=== PATIENT | female | born 1965 | race Caucasian/White ===

== ENCOUNTER 2019-08-05 12:31 | Emergency (ER) | payer MEDICARE, OTHER ==
[~2019-08-05] VITALS: Ht 162.6 cm; Wt 50.0 kg
[~2019-08-05 12:31] MED LIST: ESOM20CA31 PO; HALO.5 PO; METO25 PO; PALI6 PO; [UNRECOGNIZED DRUG - REMARK] PO
[2019-08-05 14:40] LABS: BASOPHILS % (AUTO) 0.5 % (0.0-2.0); EOSINOPHILS % (AUTO) 0.5 % (1.0-6.0); HEMATOCRIT 39.4 % (36-46); HEMOGLOBIN 13.6 g/dL (12.0-16.0); LYMPHOCYTES # (AUTO) 1.5 K/uL (1.0-4.8); MEAN CORPUSCULAR HEMOGLOBIN 33.7 pg (26.0-34.0); MEAN CORPUSCULAR HGB CONC 34.5 G/dL (31.0-37.0); MEAN CORPUSCULAR VOLUME 98 fL (80-100); MONOCYTES # (AUTO) 0.5 K/uL (0.1-1.0); MONOCYTES % (AUTO) 10.3 % (2.0-9.0); NEUTROPHILS % (AUTO) 58.7 % (40.0-70.0); PLATELET COUNT (AUTO) 180 K/uL (150-450); RED BLOOD CELL COUNT(AUTO) 4.03 MIL/uL (4.00-5.20); RED CELL DISTRIBUTION WIDTH 14.3 % (11.5-14.5)
[2019-08-05 14:52] LABS: ANION GAP 6 mmol/L (8-16); CALCIUM, TOTAL 8.3 mg/dL (8.8-10.5); CARBON DIOXIDE 30 mmol/L (22-29); CHLORIDE 105 mmol/L (98-107); CREATININE 0.77 mg/dL (0.60-1.30); GLOMERULAR FILTR. RATE CALC > 60 mL/min (>60); GLUCOSE,RANDOM 73 mg/dL (70-110); POTASSIUM 3.6 mmol/L (3.5-5.1); SODIUM SERUM 141 mmol/L (136-145); UREA NITROGEN, BLOOD 7 mg/dL (7-18)
[2019-08-05 14:53] LABS: AMPHET/METH SCREEN,URINE NEGATIVE (NEGATIVE); APPEARANCE,URINE CLEAR (CLEAR); BARBITURATE SCREEN, URINE NEGATIVE (NEGATIVE); BENZODIAZEPINES SCREEN,URINE NEGATIVE (NEGATIVE); BILIRUBIN,URINE NEGATIVE (NEGATIVE); CANNABINOID SCREEN,URINE POSITIVE (NEGATIVE); COCAINE SCREEN,URINE NEGATIVE (NEGATIVE); GLUCOSE, URINE (UA) 100 mg/dL (NEGATIVE); KETONES,URINE NEGATIVE (NEGATIVE); LEUKOCYTE ESTERASE ,URINE NEGATIVE (NEGATIVE); METHADONE SCREEN, URINE NEGATIVE (NEGATIVE); NITRATE,URINE NEGATIVE (NEGATIVE); OCCULT BLOOD,URINE NEGATIVE (NEGATIVE); OPIATE SCREEN,URINE NEGATIVE (NEGATIVE); PH,URINE 6.5 (5.0-8.0); PROTEIN,URINE NEGATIVE (NEGATIVE)
[2019-08-05 14:54] LABS: PHENCYCLIDINE SCREEN,URINE NEGATIVE (NEGATIVE)
[2019-08-05 14:58] LABS: ALANINE AMINOTRANSFERASE 12 U/L (12-78); ALBUMIN 3.1 g/dL (3.4-5.0); ALKALINE PHOSPHATASE 71 U/L (46-116); ASPARTATE AMINOTRANSFERASE 10 U/L (15-37); BILIRUBIN,TOTAL 0.2 mg/dL (0.1-1.0); LIPASE 1018 U/L (73-393); TOTAL PROTEIN, SERUM 6.2 g/dL (6.4-8.2)
[2019-08-05 15:00] LABS: BACTERIA,URINE None Seen /HPF (None Seen); RBC,URINE None Seen /HPF (0-2); SQUAMOUS EPITHELIAL CELL,UR Few /LPF (None Seen); WBC,URINE None Seen /HPF (0-5)
[2019-08-05 16:40] VITALS: BP 136/71
== END 2019-08-05 17:19 | disposition home or self-care (01) ==
LOC: EMS 12:33
DX: R10.9 Unspecified abdominal pain (principal); R74.8 Abnormal levels of other serum enzymes; E11.9 Type 2 diabetes mellitus without complications; I10 Essential (primary) hypertension; F41.9 Anxiety disorder, unspecified; F32.9 Major depressive disorder, single episode, unspecified; F19.10 Other psychoactive substance abuse, uncomplicated; F20.9 Schizophrenia, unspecified; Z79.899 Other long term (current) drug therapy; Z88.8 Allergy status to other drugs, medicaments and biological substances

== ENCOUNTER 2020-11-06 12:51 | Emergency (ER) | payer MEDICARE, OTHER ==
[~2020-11-06] VITALS: Ht 165.1 cm; Wt 63.6 kg
[~2020-11-06 12:51] MED LIST changes: -PALI6 PO; +PALI6TAB15 PO; -[UNRECOGNIZED DRUG - REMARK] PO
[2020-11-06 13:53] LABS: APPEARANCE,URINE CLEAR (CLEAR); GLUCOSE, URINE (UA) 100 mg/dL (NEGATIVE); KETONES,URINE NEGATIVE (NEGATIVE); LEUKOCYTE ESTERASE ,URINE NEGATIVE (NEGATIVE); NITRATE,URINE NEGATIVE (NEGATIVE); OCCULT BLOOD,URINE NEGATIVE (NEGATIVE); PROTEIN,URINE NEGATIVE (NEGATIVE)
[2020-11-06 13:59] LABS: AMPHET/METH SCREEN,URINE NEGATIVE (NEGATIVE); BARBITURATE SCREEN, URINE NEGATIVE (NEGATIVE); BENZODIAZEPINES SCREEN,URINE NEGATIVE (NEGATIVE); CANNABINOID SCREEN,URINE POSITIVE (NEGATIVE); COCAINE SCREEN,URINE NEGATIVE (NEGATIVE); METHADONE SCREEN, URINE NEGATIVE (NEGATIVE); OPIATE SCREEN,URINE NEGATIVE (NEGATIVE); PHENCYCLIDINE SCREEN,URINE NEGATIVE (NEGATIVE)
[2020-11-06 14:04] LABS: BILIRUBIN,URINE PRELIM. POSITIVE (NEGATIVE)
[2020-11-06 14:05] LABS: BACTERIA,URINE None Seen /HPF (None Seen); RBC,URINE None Seen /HPF (0-2); WBC,URINE None Seen /HPF (0-5)
[2020-11-06 14:09] LABS: BASOPHILS % (AUTO) 0.5 % (0.0-2.0); EOSINOPHILS % (AUTO) 0.2 % (1.0-6.0); HEMATOCRIT 43.5 % (36-46); HEMOGLOBIN 14.8 g/dL (12.0-16.0); LYMPHOCYTES # (AUTO) 1.4 K/uL (1.0-4.8); LYMPHOCYTES % (AUTO) 24.2 % (22.0-44.0); MEAN CORPUSCULAR HEMOGLOBIN 34.5 pg (26.0-34.0); MEAN CORPUSCULAR HGB CONC 34.2 G/dL (31.0-37.0); MEAN CORPUSCULAR VOLUME 101 fL (80-100); MONOCYTES # (AUTO) 0.4 K/uL (0.1-1.0); MONOCYTES % (AUTO) 7.1 % (2.0-9.0); NEUTROPHILS # (AUTO) 3.8 K/uL (1.8-7.7); PLATELET COUNT (AUTO) 207 K/uL (150-450); RED CELL DISTRIBUTION WIDTH 13.2 % (11.5-14.5)
[2020-11-06 14:15] LABS: ANION GAP 6 mmol/L (8-16); CARBON DIOXIDE 31 mmol/L (22-29); CHLORIDE 105 mmol/L (98-107); CREATININE 1.03 mg/dL (0.60-1.30); GLOMERULAR FILTR. RATE CALC 55 mL/min (>60); GLUCOSE,RANDOM 109 mg/dL (70-110); POTASSIUM 3.6 mmol/L (3.5-5.1); SODIUM SERUM 142 mmol/L (136-145); UREA NITROGEN, BLOOD 7 mg/dL (7-18)
[2020-11-06 14:30] VITALS: BP 146/89
[2020-11-06 14:33] LABS: ALANINE AMINOTRANSFERASE 19 U/L (12-78); ALBUMIN 3.4 g/dL (3.4-5.0); ALKALINE PHOSPHATASE 76 U/L (46-116); ASPARTATE AMINOTRANSFERASE 11 U/L (15-37); BILIRUBIN,TOTAL 0.6 mg/dL (0.1-1.0); FREE T4 (FREE THYROXINE) 1.08 ng/dL (0.76-1.46); THYROID STIMULATING HORMONE 0.68 uIU/mL (0.36-3.74); TOTAL PROTEIN, SERUM 7.2 g/dL (6.4-8.2)
== END 2020-11-06 14:59 | disposition home or self-care (01) ==
LOC: EMS 12:59
DX: R10.84 Generalized abdominal pain (principal); R53.1 Weakness; F20.9 Schizophrenia, unspecified; F32.9 Major depressive disorder, single episode, unspecified; I10 Essential (primary) hypertension; F41.9 Anxiety disorder, unspecified; F17.210 Nicotine dependence, cigarettes, uncomplicated
CPT/HCPCS: 36415; 80053; 80307; 81001; 84439; 84443; 85025; 99283; G0480

== ENCOUNTER 2020-12-10 08:54 | Emergency (ER) | payer MEDICARE, OTHER ==
[~2020-12-10] VITALS: Ht 170.2 cm; Wt 63.6 kg
[2020-12-10 11:12] LABS: BASOPHILS % (AUTO) 0.5 % (0.0-2.0); EOSINOPHILS % (AUTO) 0.3 % (1.0-6.0); HEMATOCRIT 43.2 % (36-46); HEMOGLOBIN 14.6 g/dL (12.0-16.0); LYMPHOCYTES # (AUTO) 1.3 K/uL (1.0-4.8); LYMPHOCYTES % (AUTO) 23.3 % (22.0-44.0); MEAN CORPUSCULAR HEMOGLOBIN 33.8 pg (26.0-34.0); MEAN CORPUSCULAR HGB CONC 33.7 G/dL (31.0-37.0); MEAN CORPUSCULAR VOLUME 100 fL (80-100); MONOCYTES # (AUTO) 0.3 K/uL (0.1-1.0); MONOCYTES % (AUTO) 6.1 % (2.0-9.0); NEUTROPHILS % (AUTO) 69.8 % (40.0-70.0); PLATELET COUNT (AUTO) 195 K/uL (150-450); RED CELL DISTRIBUTION WIDTH 13.2 % (11.5-14.5)
[2020-12-10 11:27] LABS: ANION GAP 9 mmol/L (8-16); CALCIUM, TOTAL 9.1 mg/dL (8.8-10.5); CARBON DIOXIDE 26 mmol/L (22-29); CHLORIDE 106 mmol/L (98-107); CREATININE 0.73 mg/dL (0.60-1.30); GLOMERULAR FILTR. RATE CALC > 60 mL/min (>60); GLUCOSE,RANDOM 90 mg/dL (70-110); POTASSIUM 4.2 mmol/L (3.5-5.1); SODIUM SERUM 141 mmol/L (136-145); UREA NITROGEN, BLOOD 10 mg/dL (7-18)
[2020-12-10 11:32] LABS: ALANINE AMINOTRANSFERASE 15 U/L (12-78); ALBUMIN 4.2 g/dL (3.4-5.0); ALKALINE PHOSPHATASE 75 U/L (46-116); ASPARTATE AMINOTRANSFERASE 10 U/L (15-37); BILIRUBIN,TOTAL 0.6 mg/dL (0.1-1.0); TOTAL PROTEIN, SERUM 7.3 g/dL (6.4-8.2)
[2020-12-10 13:36] VITALS: BP 150/99
== END 2020-12-10 13:38 | disposition home or self-care (01) ==
LOC: EMS 09:03
DX: R45.4 Irritability and anger (principal); R45.851 Suicidal ideations; F41.9 Anxiety disorder, unspecified; F32.9 Major depressive disorder, single episode, unspecified; E11.9 Type 2 diabetes mellitus without complications; I10 Essential (primary) hypertension; F20.9 Schizophrenia, unspecified; F17.210 Nicotine dependence, cigarettes, uncomplicated; Z90.89 Acquired absence of other organs
CPT/HCPCS: 36415; 80053; 85025; 99285; G0480

== ENCOUNTER 2020-12-15 07:16 | Emergency (ER) | payer MEDICARE, OTHER ==
[~2020-12-15] VITALS: Ht 170.2 cm; Wt 59.2 kg
[2020-12-15 07:44] LABS: GLUCOSE,POINT OF CARE 98 MG/DL (70-110)
[2020-12-15 07:59] LABS: BASOPHILS % (AUTO) 0.2 % (0.0-2.0); EOSINOPHILS % (AUTO) 0.2 % (1.0-6.0); HEMATOCRIT 43.5 % (36-46); HEMOGLOBIN 14.7 g/dL (12.0-16.0); LYMPHOCYTES # (AUTO) 1.3 K/uL (1.0-4.8); LYMPHOCYTES % (AUTO) 20.5 % (22.0-44.0); MEAN CORPUSCULAR HEMOGLOBIN 33.7 pg (26.0-34.0); MEAN CORPUSCULAR HGB CONC 33.8 G/dL (31.0-37.0); MEAN CORPUSCULAR VOLUME 100 fL (80-100); MONOCYTES # (AUTO) 0.3 K/uL (0.1-1.0); MONOCYTES % (AUTO) 5.4 % (2.0-9.0); NEUTROPHILS # (AUTO) 4.7 K/uL (1.8-7.7); NEUTROPHILS % (AUTO) 73.7 % (40.0-70.0); PLATELET COUNT (AUTO) 213 K/uL (150-450); RED BLOOD CELL COUNT(AUTO) 4.36 MIL/uL (4.00-5.20); RED CELL DISTRIBUTION WIDTH 13.4 % (11.5-14.5)
[2020-12-15 08:17] LABS: CALCIUM, TOTAL 8.8 mg/dL (8.8-10.5); CREATININE 1.09 mg/dL (0.60-1.30); POTASSIUM 3.9 mmol/L (3.5-5.1)
[2020-12-15 08:57] VITALS: BP 155/101
== END 2020-12-15 09:31 | disposition home or self-care (01) ==
LOC: EMS 07:21
DX: S13.4XXA Sprain of ligaments of cervical spine, initial encounter (principal); S09.90XA Unspecified injury of head, initial encounter; R07.89 Other chest pain; F41.9 Anxiety disorder, unspecified; F32.9 Major depressive disorder, single episode, unspecified; E11.9 Type 2 diabetes mellitus without complications; I10 Essential (primary) hypertension; F20.9 Schizophrenia, unspecified; F17.210 Nicotine dependence, cigarettes, uncomplicated; Z90.89 Acquired absence of other organs; W19.XXXA Unspecified fall, initial encounter; Y93.89 Activity, other specified; Y92.89 Other specified places as the place of occurrence of the external cause; Y99.8 Other external cause status
CPT/HCPCS: 70450; 71045; 72125; 80048; 82962; 84484; 85025; 93005; 99285; 36415-L1; 36415-TC

== ENCOUNTER 2021-08-30 16:15 | Inpatient (IN) | payer MEDICARE, MEDICAID ==
[~2021-08-30] VITALS: Ht 162.6 cm; Wt 47.6 kg
[~2021-08-30 16:15] MED LIST changes: -ESOM20CA31 PO; -HALO.5 PO; +MULT-1239 PO; -PALI6TAB15 PO; +RISP3TAB35 PO; +THIA100T80 PO
[2021-08-30 17:19] LABS: COVID AG,FIA SOURCE NASOPHARYNGEAL
[2021-08-30 18:36] LABS: BASOPHILS % (AUTO) 0.5 % (0.0-2.0); EOSINOPHILS % (AUTO) 0.6 % (1.0-6.0); HEMATOCRIT 38.5 % (36-46); HEMOGLOBIN 13.3 g/dL (12.0-16.0); LYMPHOCYTES # (AUTO) 1.4 K/uL (1.0-4.8); LYMPHOCYTES % (AUTO) 24.4 % (22.0-44.0); MEAN CORPUSCULAR HEMOGLOBIN 33.4 pg (26.0-34.0); MEAN CORPUSCULAR HGB CONC 34.4 G/dL (31.0-37.0); MEAN CORPUSCULAR VOLUME 97 fL (80-100); MONOCYTES # (AUTO) 0.4 K/uL (0.1-1.0); MONOCYTES % (AUTO) 6.7 % (2.0-9.0); NEUTROPHILS % (AUTO) 67.8 % (40.0-70.0); PLATELET COUNT (AUTO) 237 K/uL (150-450); RED BLOOD CELL COUNT(AUTO) 3.97 MIL/uL (4.00-5.20); RED CELL DISTRIBUTION WIDTH 13.5 % (11.5-14.5)
[2021-08-30] MEDS ORDERED: RisperiDONE 1 MG TABLET PO ONE (18:45)
[2021-08-30] MEDS ORDERED: DiphenhydrAMINE HCL 25 MG CAPSULE PO ONE (18:45)
[2021-08-30 18:47] LABS: ANION GAP 6 mmol/L (8-16); CALCIUM, TOTAL 9.1 mg/dL (8.8-10.5); CARBON DIOXIDE 29 mmol/L (22-29); CHLORIDE 106 mmol/L (98-107); CREATININE 1.06 mg/dL (0.60-1.30); GLOMERULAR FILTR. RATE CALC 53 mL/min (>60); GLUCOSE,RANDOM 108 mg/dL (70-110); POTASSIUM 3.6 mmol/L (3.5-5.1); SODIUM SERUM 141 mmol/L (136-145); UREA NITROGEN, BLOOD 13 mg/dL (7-18)
[2021-08-30 18:53] LABS: ALANINE AMINOTRANSFERASE 16 U/L (12-78); ALBUMIN 3.4 g/dL (3.4-5.0); ALKALINE PHOSPHATASE 73 U/L (46-116); ASPARTATE AMINOTRANSFERASE 11 U/L (15-37); BILIRUBIN,TOTAL 0.4 mg/dL (0.1-1.0); TOTAL PROTEIN, SERUM 6.4 g/dL (6.4-8.2)
[2021-08-31 01:48] LABS: CHOL/HDL RATIO 2.3 (3.9-5.7); CHOLESTEROL 135 mg/dL (131-200); HDL CHOLESTEROL 60 mg/dL (40-60); LDL CHOL (CALC.) 60 mg/dL (0-130); TRIGLYCERIDES 75 mg/dL (15-150)
[2021-08-31 03:10] LABS: APPEARANCE,URINE CLEAR (CLEAR); BILIRUBIN,URINE NEGATIVE (NEGATIVE); GLUCOSE, URINE (UA) NEGATIVE (NEGATIVE); KETONES,URINE NEGATIVE (NEGATIVE); LEUKOCYTE ESTERASE ,URINE NEGATIVE (NEGATIVE); NITRATE,URINE NEGATIVE (NEGATIVE); OCCULT BLOOD,URINE NEGATIVE (NEGATIVE); PH,URINE 6.5 (5.0-8.0); PROTEIN,URINE NEGATIVE (NEGATIVE); UROBILINOGEN,URINE 0.2 mg/dL (<=1.0)
[2021-08-31 03:15] LABS: AMPHET/METH SCREEN,URINE POSITIVE (NEGATIVE); BARBITURATE SCREEN, URINE NEGATIVE (NEGATIVE); BENZODIAZEPINES SCREEN,URINE NEGATIVE (NEGATIVE); CANNABINOID SCREEN,URINE POSITIVE (NEGATIVE); COCAINE SCREEN,URINE NEGATIVE (NEGATIVE); METHADONE SCREEN, URINE NEGATIVE (NEGATIVE); OPIATE SCREEN,URINE NEGATIVE (NEGATIVE)
[2021-08-31 03:17] LABS: PHENCYCLIDINE SCREEN,URINE NEGATIVE (NEGATIVE)
[2021-08-31] MEDS: LORazepam 2 MG TABLET PO PRN ×2 (03:53→10:08)
[2021-08-31] MEDS: QUEtiapine FUMARATE 100 MG TABLET PO PRN ×2 (03:54→10:08)
[2021-08-31] MEDS ORDERED: ALBUTEROL SULFATE HFA 90 MCG/PUFF 8 GM INHALER IH PRN (13:45)
[2021-08-31] MEDS ORDERED: MAGNESIUM HYDROXIDE SUSPENSION 30 ML UDCUP PO PRN (13:45)
[2021-08-31] MEDS ORDERED: CloNIDine HCL 0.1 MG TABLET PO PRN (13:45)
[2021-08-31] MEDS ORDERED: LOPERAMIDE HCL 2 MG CAPSULE PO PRN (13:45)
[2021-08-31] MEDS ORDERED: ONDANSETRON HCL 4 MG TABLET PO PRN (13:45)
[2021-08-31] MEDS ORDERED: MAG HYDROX/AL HYDROX/SIMETH ES 30 ML SUSPENSION UDCUP PO PRN (13:45)
[2021-08-31] MEDS ORDERED: PETROLATUM,WHITE 28 GM JELLY TP PRN (13:45)
[2021-08-31] MEDS ORDERED: GuaiFENesin/D-METHORPHAN [SUGAR-FREE] 200-20MG/10 ML SYRUP UDCUP PO PRN (13:45)
[2021-08-31] MEDS ORDERED: DOCUSATE SODIUM 100 MG CAPSULE PO PRN (13:45)
[2021-08-31] MEDS: METOPROLOL TARTRATE 50 MG TABLET PO SCH ×2 (21:00→21:21)
[2021-08-31] MEDS: ZOLPIDEM TARTRATE 10 MG TABLET PO PRN (22:38)
[2021-09-01] MEDS: QUEtiapine FUMARATE 100 MG TABLET PO PRN (04:58)
[2021-09-01] MEDS: LORazepam 2 MG TABLET PO PRN (04:59)
[2021-09-01] MEDS: NICOTINE 14 MG/24 HOUR PATCH TD PRN (08:12)
[2021-09-01] MEDS: MULTIVITAMINS WITH MINERALS, THERAPEUTIC TABLET PO SCH (09:19)
[2021-09-01] MEDS: METOPROLOL TARTRATE 50 MG TABLET PO SCH (09:19)
[2021-09-01] MEDS ORDERED: PNEUMOCOCCAL VACCINE POLYVALENT 0.5 ML VIAL [PPSV23] IM. ONE (21:00)
[2021-09-01 21:11] LABS: GLUCOMETER DEV NAME(LOC) BV2X.2; GLUCOSE,POINT OF CARE 70 MG/DL (70-110)
[2021-09-01 21:15] VITALS: BP 164/96
[2021-09-01] MEDS ORDERED: INFLUENZA VIRUS VACCINE QVS 2021-22 (6MO+)/PF 60 MCG/0.5 ML SYRINGE IM. ONE (21:45)
[2021-09-02] MEDS: MULTIVITAMINS WITH MINERALS, THERAPEUTIC TABLET PO SCH (08:10)
[2021-09-02] MEDS: METOPROLOL TARTRATE 50 MG TABLET PO SCH ×2 (08:11→16:26)
[2021-09-02 08:23] VITALS: BP 154/89
[2021-09-02] MEDS: RisperiDONE 2 MG TABLET PO SCH ×2 (09:45→20:32)
[2021-09-02 16:12] VITALS: BP 131/72
[2021-09-02] MEDS: LORazepam 2 MG TABLET PO PRN (16:33)
[2021-09-02] MEDS: QUEtiapine FUMARATE 100 MG TABLET PO PRN (17:02)
[2021-09-03 07:13] VITALS: BP 112/78
[2021-09-03] MEDS: METOPROLOL TARTRATE 50 MG TABLET PO SCH ×2 (07:33→16:11)
[2021-09-03] MEDS: RisperiDONE 2 MG TABLET PO SCH ×2 (07:34→20:11)
[2021-09-03] MEDS: MULTIVITAMINS WITH MINERALS, THERAPEUTIC TABLET PO SCH (07:34)
[2021-09-03 09:23] VITALS: BP 116/93
[2021-09-03] MEDS ORDERED: TUBERCULIN, PURIFIED PROTEIN DERIVATIVE 5 TU/0.1 ML SYRINGE ID ONE (15:30)
[2021-09-03 16:08] VITALS: BP 144/89
[2021-09-03] MEDS: QUEtiapine FUMARATE 100 MG TABLET PO PRN (16:11)
[2021-09-04 08:09] VITALS: BP 154/89
[2021-09-04] MEDS: MULTIVITAMINS WITH MINERALS, THERAPEUTIC TABLET PO SCH (09:51)
[2021-09-04] MEDS: METOPROLOL TARTRATE 50 MG TABLET PO SCH ×2 (09:51→16:59)
[2021-09-04] MEDS: RisperiDONE 2 MG TABLET PO SCH ×2 (09:51→20:10)
[2021-09-04 15:54] VITALS: BP 138/73
[2021-09-04 16:49] VITALS: BP 138/73
[2021-09-04] MEDS: LORazepam 2 MG TABLET PO PRN (17:02)
[2021-09-05] MEDS: MULTIVITAMINS WITH MINERALS, THERAPEUTIC TABLET PO SCH (08:09)
[2021-09-05] MEDS: RisperiDONE 2 MG TABLET PO SCH ×2 (08:09→20:37)
[2021-09-05] MEDS: METOPROLOL TARTRATE 50 MG TABLET PO SCH ×2 (08:10→16:20)
[2021-09-05 08:14] VITALS: BP 123/67
[2021-09-05 16:05] VITALS: BP 127/73
[2021-09-05 16:33] VITALS: BP 127/73
[2021-09-05] MEDS: IBUPROFEN 400 MG TABLET PO PRN (16:48)
[2021-09-05] MEDS: ZOLPIDEM TARTRATE 10 MG TABLET PO PRN (20:38)
[2021-09-06] VITALS (7 sets, daily range): BP systolic 136–185; BP diastolic 71–87
[2021-09-06] MEDS: IBUPROFEN 400 MG TABLET PO PRN ×3 (02:16→20:38)
[2021-09-06] MEDS: METOPROLOL TARTRATE 50 MG TABLET PO SCH ×2 (08:07→16:38)
[2021-09-06] MEDS: MULTIVITAMINS WITH MINERALS, THERAPEUTIC TABLET PO SCH (08:07)
[2021-09-06] MEDS: RisperiDONE 2 MG TABLET PO SCH ×2 (08:07→20:38)
[2021-09-06] MEDS: NICOTINE 14 MG/24 HOUR PATCH TD PRN (08:14)
[2021-09-06 14:41] LABS: GLUCOMETER DEV NAME(LOC) POC.BV
[2021-09-07] VITALS (7 sets, daily range): BP systolic 134–166; BP diastolic 75–98
[2021-09-07 08:10] LABS: ANION GAP 6 mmol/L (8-16); CALCIUM, TOTAL 8.5 mg/dL (8.8-10.5); CARBON DIOXIDE 26 mmol/L (22-29); CHLORIDE 104 mmol/L (98-107); GLOMERULAR FILTR. RATE CALC > 60 mL/min (>60); GLUCOSE,RANDOM 99 mg/dL (70-110); POTASSIUM 4.3 mmol/L (3.5-5.1); SODIUM SERUM 136 mmol/L (136-145); UREA NITROGEN, BLOOD 15 mg/dL (7-18)
[2021-09-07] MEDS: RisperiDONE 2 MG TABLET PO SCH ×2 (08:48→20:38)
[2021-09-07] MEDS: MULTIVITAMINS WITH MINERALS, THERAPEUTIC TABLET PO SCH (08:48)
[2021-09-07] MEDS: METOPROLOL TARTRATE 50 MG TABLET PO SCH ×2 (08:48→17:05)
[2021-09-07] MEDS: IBUPROFEN 400 MG TABLET PO PRN (11:09)
[2021-09-07] MEDS: ACETAMINOPHEN 325 MG TABLET PO PRN (20:38)
[2021-09-08 05:33] VITALS: BP 137/68
[2021-09-08 08:06] VITALS: BP 128/80
[2021-09-08] MEDS: METOPROLOL TARTRATE 50 MG TABLET PO SCH ×2 (08:54→16:41)
[2021-09-08] MEDS: RisperiDONE 2 MG TABLET PO SCH ×2 (08:54→20:28)
[2021-09-08] MEDS: MULTIVITAMINS WITH MINERALS, THERAPEUTIC TABLET PO SCH (08:54)
[2021-09-08 12:47] VITALS: BP 128/80
[2021-09-08] MEDS: ACETAMINOPHEN 325 MG TABLET PO PRN (15:49)
[2021-09-08 16:07] VITALS: BP 145/91
[2021-09-08 20:30] VITALS: BP 163/88
[2021-09-09] MEDS: LORazepam 2 MG TABLET PO PRN (05:22)
[2021-09-09 05:33] VITALS: BP 150/78
[2021-09-09 07:53] LABS: BASOPHILS % (AUTO) 0.3 % (0.0-2.0); EOSINOPHILS % (AUTO) 0 % (1.0-6.0); HEMOGLOBIN 12.4 g/dL (12.0-16.0); LYMPHOCYTES # (AUTO) 0.8 K/uL (1.0-4.8); LYMPHOCYTES % (AUTO) 17.8 % (22.0-44.0); MEAN CORPUSCULAR HEMOGLOBIN 33.1 pg (26.0-34.0); MEAN CORPUSCULAR HGB CONC 34.5 G/dL (31.0-37.0); MEAN CORPUSCULAR VOLUME 96 fL (80-100); MONOCYTES # (AUTO) 0.5 K/uL (0.1-1.0); MONOCYTES % (AUTO) 11.7 % (2.0-9.0); NEUTROPHILS % (AUTO) 70.2 % (40.0-70.0); PLATELET COUNT (AUTO) 115 K/uL (150-450); RED BLOOD CELL COUNT(AUTO) 3.75 MIL/uL (4.00-5.20); RED CELL DISTRIBUTION WIDTH 13.3 % (11.5-14.5)
[2021-09-09 08:03] VITALS: BP 111/68
[2021-09-09] MEDS: MULTIVITAMINS WITH MINERALS, THERAPEUTIC TABLET PO SCH (08:33)
[2021-09-09] MEDS: RisperiDONE 2 MG TABLET PO SCH ×2 (08:33→20:11)
[2021-09-09] MEDS: METOPROLOL TARTRATE 50 MG TABLET PO SCH ×2 (08:33→17:14)
[2021-09-09 12:17] VITALS: BP 148/74
[2021-09-09 16:02] VITALS: BP 134/67
[2021-09-09] MEDS: ACETAMINOPHEN 325 MG TABLET PO PRN (19:11)
[2021-09-09 20:03] VITALS: BP 124/83
[2021-09-10 06:46] VITALS: BP 110/65
[2021-09-10 08:25] VITALS: BP 138/74
[2021-09-10] MEDS: MULTIVITAMINS WITH MINERALS, THERAPEUTIC TABLET PO SCH (08:27)
[2021-09-10] MEDS: RisperiDONE 2 MG TABLET PO SCH ×2 (08:28→20:12)
[2021-09-10] MEDS: METOPROLOL TARTRATE 50 MG TABLET PO SCH ×2 (08:28→16:05)
[2021-09-10 12:38] VITALS: BP 127/64
[2021-09-10] MEDS: QUEtiapine FUMARATE 100 MG TABLET PO PRN (14:25)
[2021-09-10 16:11] VITALS: BP 108/67
[2021-09-11 00:14] VITALS: BP 108/76
[2021-09-11 08:30] VITALS: BP 110/60
[2021-09-11] MEDS: MULTIVITAMINS WITH MINERALS, THERAPEUTIC TABLET PO SCH (08:45)
[2021-09-11] MEDS: RisperiDONE 2 MG TABLET PO SCH ×2 (08:45→20:13)
[2021-09-11] MEDS: METOPROLOL TARTRATE 50 MG TABLET PO SCH ×2 (08:45→16:07)
[2021-09-11] MEDS: ACETAMINOPHEN 325 MG TABLET PO PRN ×2 (08:45→18:16)
[2021-09-11 12:47] VITALS: BP 115/64
[2021-09-11 14:41] LABS: GLUCOMETER DEV NAME(LOC) POC.BV
[2021-09-11 16:06] VITALS: BP 124/80
[2021-09-11] MEDS: LORazepam 2 MG TABLET PO PRN (18:16)
[2021-09-12 00:36] VITALS: BP 126/78
[2021-09-12 08:15] VITALS: BP 124/80
[2021-09-12] MEDS: METOPROLOL TARTRATE 50 MG TABLET PO SCH ×2 (09:00→16:23)
[2021-09-12] MEDS: MULTIVITAMINS WITH MINERALS, THERAPEUTIC TABLET PO SCH (09:00)
[2021-09-12] MEDS: RisperiDONE 2 MG TABLET PO SCH ×2 (09:00→20:28)
[2021-09-12 14:10] VITALS: BP 126/72
[2021-09-12 16:16] VITALS: BP 119/63
[2021-09-12] MEDS: ACETAMINOPHEN 325 MG TABLET PO PRN (16:36)
[2021-09-12 20:06] VITALS: BP 123/66
[2021-09-13 00:30] VITALS: BP 107/86
[2021-09-13 04:29] VITALS: BP 110/82
[2021-09-13 09:13] VITALS: BP 126/78
[2021-09-13] MEDS: METOPROLOL TARTRATE 50 MG TABLET PO SCH ×2 (09:32→16:16)
[2021-09-13] MEDS: RisperiDONE 2 MG TABLET PO SCH ×2 (09:32→20:03)
[2021-09-13] MEDS: MULTIVITAMINS WITH MINERALS, THERAPEUTIC TABLET PO SCH (09:33)
[2021-09-13 10:11] LABS: GLUCOMETER DEV NAME(LOC) POC.BV
[2021-09-13 12:23] VITALS: BP 130/68
[2021-09-13 16:07] VITALS: BP 126/69
[2021-09-13] MEDS: ACETAMINOPHEN 325 MG TABLET PO PRN (16:30)
[2021-09-14 06:48] VITALS: BP 118/69
[2021-09-14 08:21] VITALS: BP 103/57
[2021-09-14] MEDS: QUEtiapine FUMARATE 100 MG TABLET PO PRN ×2 (08:27→17:11)
[2021-09-14] MEDS: RisperiDONE 2 MG TABLET PO SCH ×2 (08:27→20:07)
[2021-09-14] MEDS: MULTIVITAMINS WITH MINERALS, THERAPEUTIC TABLET PO SCH (08:27)
[2021-09-14] MEDS: METOPROLOL TARTRATE 50 MG TABLET PO SCH ×2 (08:27→16:58)
[2021-09-14] MEDS: ACETAMINOPHEN 325 MG TABLET PO PRN ×2 (08:27→17:12)
[2021-09-14] MEDS: NICOTINE 14 MG/24 HOUR PATCH TD PRN (08:28)
[2021-09-14 16:18] VITALS: BP 125/61
[2021-09-15 06:17] VITALS: BP 117/66
[2021-09-15] MEDS: METOPROLOL TARTRATE 50 MG TABLET PO SCH ×2 (08:15→16:46)
[2021-09-15] MEDS: RisperiDONE 2 MG TABLET PO SCH ×2 (08:15→20:29)
[2021-09-15] MEDS: MULTIVITAMINS WITH MINERALS, THERAPEUTIC TABLET PO SCH (08:15)
[2021-09-15 08:17] VITALS: BP 124/69
[2021-09-15 17:21] VITALS: BP 125/73
[2021-09-16 06:22] VITALS: BP 111/64
[2021-09-16] MEDS: MULTIVITAMINS WITH MINERALS, THERAPEUTIC TABLET PO SCH (08:44)
[2021-09-16] MEDS: METOPROLOL TARTRATE 50 MG TABLET PO SCH ×2 (08:44→17:09)
[2021-09-16] MEDS: RisperiDONE 2 MG TABLET PO SCH ×2 (08:45→20:12)
[2021-09-16 10:46] LABS: GLUCOMETER DEV NAME(LOC) POC.BV
[2021-09-16 13:08] VITALS: BP 110/70
[2021-09-16 16:04] VITALS: BP 106/70
[2021-09-16] MEDS: ACETAMINOPHEN 325 MG TABLET PO PRN (17:16)
[2021-09-17 06:17] VITALS: BP 106/62
[2021-09-17 08:20] VITALS: BP 108/68
[2021-09-17] MEDS: METOPROLOL TARTRATE 50 MG TABLET PO SCH ×2 (08:37→18:13)
[2021-09-17] MEDS: RisperiDONE 2 MG TABLET PO SCH ×2 (08:38→20:41)
[2021-09-17] MEDS: MULTIVITAMINS WITH MINERALS, THERAPEUTIC TABLET PO SCH (08:38)
[2021-09-17 16:12] VITALS: BP 121/70
[2021-09-18 06:09] VITALS: BP 139/64
[2021-09-18 08:20] VITALS: BP 134/75
[2021-09-18] MEDS: QUEtiapine FUMARATE 100 MG TABLET PO PRN (08:23)
[2021-09-18] MEDS: METOPROLOL TARTRATE 50 MG TABLET PO SCH ×2 (08:23→17:39)
[2021-09-18] MEDS: MULTIVITAMINS WITH MINERALS, THERAPEUTIC TABLET PO SCH (08:23)
[2021-09-18] MEDS: RisperiDONE 2 MG TABLET PO SCH ×2 (08:23→21:13)
[2021-09-18] MEDS: ACETAMINOPHEN 325 MG TABLET PO PRN (11:40)
[2021-09-18 16:07] VITALS: BP 114/75
[2021-09-19 05:19] VITALS: BP 118/78
[2021-09-19 08:04] VITALS: BP 118/75
[2021-09-19] MEDS: RisperiDONE 2 MG TABLET PO SCH ×2 (08:13→20:05)
[2021-09-19] MEDS: MULTIVITAMINS WITH MINERALS, THERAPEUTIC TABLET PO SCH (08:13)
[2021-09-19] MEDS: METOPROLOL TARTRATE 50 MG TABLET PO SCH ×2 (08:13→16:42)
[2021-09-19] MEDS: IBUPROFEN 400 MG TABLET PO PRN (12:37)
[2021-09-19 16:49] VITALS: BP 127/72
[2021-09-20 07:03] VITALS: BP 140/88
[2021-09-20] MEDS: MULTIVITAMINS WITH MINERALS, THERAPEUTIC TABLET PO SCH (08:29)
[2021-09-20] MEDS: RisperiDONE 2 MG TABLET PO SCH ×2 (08:29→20:24)
[2021-09-20] MEDS: METOPROLOL TARTRATE 50 MG TABLET PO SCH ×2 (08:29→16:14)
[2021-09-20 09:20] VITALS: BP 121/69
[2021-09-20 16:06] VITALS: BP 138/76
[2021-09-20] MEDS: LORazepam 2 MG TABLET PO PRN (16:14)
[2021-09-21 05:08] VITALS: BP 106/61
[2021-09-21 08:20] VITALS: BP 113/64
[2021-09-21 08:22] VITALS: BP 113/64
[2021-09-21] MEDS: RisperiDONE 2 MG TABLET PO SCH ×2 (08:41→20:32)
[2021-09-21] MEDS: METOPROLOL TARTRATE 50 MG TABLET PO SCH ×2 (08:41→16:41)
[2021-09-21] MEDS: MULTIVITAMINS WITH MINERALS, THERAPEUTIC TABLET PO SCH (08:41)
[2021-09-21 16:21] VITALS: BP 135/78
[2021-09-22 06:03] VITALS: BP 116/76
[2021-09-22 08:10] VITALS: BP 133/73
[2021-09-22] MEDS: METOPROLOL TARTRATE 50 MG TABLET PO SCH ×2 (08:34→15:40)
[2021-09-22] MEDS: RisperiDONE 2 MG TABLET PO SCH ×2 (08:34→20:21)
[2021-09-22] MEDS: MULTIVITAMINS WITH MINERALS, THERAPEUTIC TABLET PO SCH (08:34)
[2021-09-22 16:05] VITALS: BP 129/67
[2021-09-23 06:54] VITALS: BP 129/78
[2021-09-23] MEDS: RisperiDONE 2 MG TABLET PO SCH ×2 (08:21→20:09)
[2021-09-23] MEDS: METOPROLOL TARTRATE 50 MG TABLET PO SCH ×2 (08:21→16:36)
[2021-09-23] MEDS: MULTIVITAMINS WITH MINERALS, THERAPEUTIC TABLET PO SCH (08:21)
[2021-09-23 08:36] VITALS: BP 112/65
[2021-09-23] MEDS ORDERED: RISP2TAB86 PO (10:47)
[2021-09-23 11:00] LABS: GLUCOMETER DEV NAME(LOC) POC.BV
[2021-09-23 16:05] VITALS: BP 128/72
[2021-09-23] MEDS: IBUPROFEN 400 MG TABLET PO PRN (18:06)
[2021-09-24 00:09] VITALS: BP 130/70
[2021-09-24] MEDS: ZOLPIDEM TARTRATE 10 MG TABLET PO PRN (01:06)
[2021-09-24 08:07] VITALS: BP 125/72
[2021-09-24] MEDS: RisperiDONE 2 MG TABLET PO SCH (08:32)
[2021-09-24] MEDS: MULTIVITAMINS WITH MINERALS, THERAPEUTIC TABLET PO SCH (08:32)
[2021-09-24] MEDS: METOPROLOL TARTRATE 50 MG TABLET PO SCH (08:32)
[2021-09-24] MEDS: ACETAMINOPHEN 325 MG TABLET PO PRN (09:41)
== END 2021-09-24 13:25 | disposition home or self-care (01) | DRG 885 ==
LOC: EMS 16:40 → B2X 09-01 18:06
PROVIDERS: ADMIT Psychiatry & Neurology Psychiatry; ATTEND Psychiatry & Neurology Psychiatry
DX: F20.0 Paranoid schizophrenia (principal); U07.1 COVID-19; K86.1 Other chronic pancreatitis; F15.10 Other stimulant abuse, uncomplicated; F17.200 Nicotine dependence, unspecified, uncomplicated; I10 Essential (primary) hypertension; E11.9 Type 2 diabetes mellitus without complications; F12.10 Cannabis abuse, uncomplicated; Z59.00 Homelessness unspecified; Z79.899 Other long term (current) drug therapy; Z90.49 Acquired absence of other specified parts of digestive tract; Z88.8 Allergy status to other drugs, medicaments and biological substances; Z71.6 Tobacco abuse counseling
CPT/HCPCS: 80048; 80053; 80061; 81003; 82962; 85025; 87081; 99285; G0480